=== PATIENT | female | born 1965 | race Caucasian/White ===

== ENCOUNTER 2016-05-10 15:46 | Emergency (ER) | payer OTHER ==
[2016-05-10 16:07] VITALS: RESP 18
[2016-05-10] MEDS ORDERED: DIPH,PERTUS(ACELL)TETVAC-LF 0.5 ML VIAL IM ONE (16:09)
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
[2016-05-10] MEDS ORDERED: CIPROFLOXACIN HCL 500 MG TAB PO STA (16:32)
[2016-05-10] MEDS ORDERED: metroNIDAZOLE 500 MG TAB PO STA (16:32)
[2016-05-10 17:02] VITALS: BP 130/68; PULSE 83; TEMP 98
[2016-05-13 07:43] LABS: Hepatitis B Surface Ag Index 0.07; Hepatitis C Virus IgG Ab Negative (Negative); Hepatitis C Virus IgG Index 0.02
[2016-05-14 06:55] LABS: HIV-1/HIV-2 Ab Screen NONREAC (NON REAC)
== END 2016-05-10 17:00 | disposition home or self-care (01) ==
LOC: EC 15:46
DX: S71.151A Open bite, right thigh, initial encounter (principal); Z88.0 Allergy status to penicillin; Z23 Encounter for immunization; Z79.899 Other long term (current) drug therapy; W50.3XXA Accidental bite by another person, initial encounter; Y92.219 Unspecified school as the place of occurrence of the external cause
CPT/HCPCS: 36415; 86803; 87340; 87389; 90471; 90715; 99283

== ENCOUNTER → 2020-04-25 | Outpatient (CLI) | payer BC ==
--- NOTE | 2020-04-25 12:25 | MM ---
Reason for exam: screening (asymptomatic). Last mammogram was performed 5 years and 10 months ago. Physical Findings: A clinical breast exam by your physician is recommended on an annual basis and results should be correlated with mammographic findings. MG Screening Mammo w CAD Bilateral CC and MLO view(s) were taken. Prior study comparison: June 29, 2014, mammogram, performed at [facility]. May 14, 2013, mammogram, performed at [facility]. The breast tissue is heterogeneously dense. This may lower the sensitivity of mammography. There is no discrete abnormality. ASSESSMENT: Negative, BI-RAD 1 RECOMMENDATION: Routine screening mammogram of both breasts in 1 year.
--- NOTE | 2020-04-25 13:35 | BD ---
EXAMINATION TYPE: Axial Bone Density DATE OF EXAM: 04/25/2020 COMPARISON: NONE CLINICAL HISTORY: Postmenopausal female. Height: 5 FT 4 IN Weight: 117 FRAX RISK QUESTIONS: Alcohol (3 or more units per day): NO Family History (Parent hip fracture): NO Glucocorticoids (More than 3mos): NO (Ex: prednisone, prednisolone, methylprednisolone, dexamethasone, and hydrocortisone). History of Fracture in Adulthood: NO Secondary Osteoporosis: 1. Type 1 Diabetes: NO 2. Hyperthyroidism: NO 3. Menopause before 45: NO 4. Malnutrition: NO 5. Chronic liver disease: NO Rheumatoid Arthritis: NO Current Tobacco Use: NO RISK FACTORS HISTORY OF: Family History of Osteoporosis: NO Active: YES Diet low in dairy products/other sources of calcium: NO Postmenopausal woman: AGE 48 Take estrogen and/or progesterone medications: NONE Lost more than 2 inches in height since high school: NO MEDICATIONS: Thyroid Medications: YES Which medication: LEVOTHYROXINE How Long: APPROX 5 YEARS Additional Medications: LEVOTHYROXINE Additional History: EXAM MEASUREMENTS: Bone mineral densitometry was performed using the Pressable System. Bone mineral density as measured about the Lumbar spine is: ----- L1-L4(G/cm2): 1.090 T Score Values are as follows: ----- L2: -0.7 ----- L3: -0.6 ----- L4: -0.9 ----- L1-L4: -0.8 BASELINE Bone mineral density about the R hip (g/cm2): 0.855 Bone mineral density about the L hip (g/cm2): 0.829 T Score values are as follows: -----R Neck: -1.3 -----L Neck: -1.5 -----R Total: -1.0 -----L Total: -1.0 BASELINE IMPRESSION: Osteopenia (T Score between -2.5 and -1). There is slightly increased risk of fracture and the patient may be considered for treatment. Re-Screen 2-5 years. NOTE: T-SCORE=SD OF THE YOUNG ADULT MEAN.
== END ==
LOC: RADMAMWWP 07:36
PROVIDERS: ATTEND Obstetrics & Gynecology
DX: Z12.31 Encounter for screening mammogram for malignant neoplasm of breast (principal); M85.89 Other specified disorders of bone density and structure, multiple sites; Z13.820 Encounter for screening for osteoporosis
CPT/HCPCS: 77067; 77080

== ENCOUNTER → 2022-09-11 | Outpatient (CLI) | payer BC ==
--- NOTE | 2022-09-12 16:39 | BD ---
EXAMINATION TYPE: Axial Bone Density DATE OF EXAM: 09/11/2022 CLINICAL HISTORY: 56 years old Female. ICD-10 CODE: M85.88 BONE DISORDER Height: 63.5 in Weight: 120 lbs RISK FACTORS HISTORY OF: Active: yes Postmenopausal woman: age 46 MEDICATIONS: Thyroid Medications: yes Which medication: Levothyroxine How Lon+ years EXAM MEASUREMENTS: Bone mineral densitometry was performed using the [employer] System. Bone mineral density as measured about the Lumbar spine is: ----- L1-L4(G/cm2): 1.019 T Score Values are as follows: ----- L1: -1.3 ----- L2: -1.4 ----- L3: -1.5 ----- L4: -1.3 ----- L1-L4: -1.3 Z Score Values are as follows: ----- L1: -0.1 ----- L2: -0.2 ----- L3: -0.3 ----- L4: -0.1 ----- L1-L4: -0.1 Bone mineral density has: Decreased -6.5% since study of: 04/25/2020 Bone mineral density about the R hip (g/cm2): 0.857 Bone mineral density about the L hip (g/cm2): 0.866 T Score values are as follows: -----R Neck: -1.5 -----L Neck: -1.6 -----R Total: -1.2 -----L Total: -1.1 Z Score values are as follows: -----R Neck: -0.2 -----L Neck: -0.3 -----R Total: -0.3 -----L Total: -0.2 Bone mineral density has: Decreased -2.7% since study of: 04/25/2020 FRAX%s: The graph provided illustrates a 6.4% chance for a major osteoporotic fx and a 0.6% chance fo r the hips probability for fx in 10 years time. IMPRESSION: Osteopenia (T Score between -2.5 and -1). There is slightly increased risk of fracture and the patient may be considered for treatment. Re-Screen 2-5 years. NOTE: T-SCORE=SD OF THE YOUNG ADULT MEAN.
--- NOTE | 2022-09-12 20:50 | MM ---
Reason for Exam: Screening (asymptomatic). Last mammogram was performed 2 year(s) and 4 month(s) ago. Patient History: Menarche at age 15. First Full-Term at age 26. Postmenopausal. Risk Values: Karen 5 year model risk: 1.2%. NCI Lifetime model risk: 8.3%. Prior Study Comparison: 05/14/2013 Screening Mammogram, [facility]. 06/29/2014 Screening Mammogram, [facility]. 04/25/2020 Bilateral Screening Mammogram, [facility]. Tissue Density: The breast tissue is heterogeneously dense. This may lower the sensitivity of mammography. Findings: Analyzed By CAD. Central upper outer quadrant global asymmetry on the right remains unchanged. There is no suspicious group of microcalcifications or new suspicious mass in either breast. Overall Assessment: Benign, BI-RAD 2 Management: Screening Mammogram of both breasts in 1 year. . Patient should continue monthly self-breast exams. A clinical breast exam by your physician is recommended on an annual basis. This exam should not preclude additional follow-up of suspicious palpable abnormalities. Note on Karen scores and lifetime risk: 1. A Karen score greater than 3% is considered moderate risk. If this is the case, consider specialist referral to assess eligibility for a risk reducing agent. 2. If overall lifetime risk for the development of breast cancer is 20% or higher, the patient may qualify for future screening with alternating mammogram and breast MRI. Electronically signed and approved by: Jyoti Fountain M.D. Radiologist
== END | disposition home or self-care (01) ==
LOC: RADBDWWP 15:28
PROVIDERS: ATTEND Obstetrics & Gynecology
DX: Z12.31 Encounter for screening mammogram for malignant neoplasm of breast (principal); M85.89 Other specified disorders of bone density and structure, multiple sites; Z78.0 Asymptomatic menopausal state
CPT/HCPCS: 77063; 77067; 77080

== ENCOUNTER → 2023-10-29 | Outpatient (CLI) | payer BC ==
--- NOTE | 2023-10-30 14:20 | MM ---
Reason for Exam: Screening (asymptomatic). Last mammogram was performed 1 year(s) and 2 month(s) ago. Patient History: Menarche at age 15. First Full-Term at age 26. Postmenopausal. Risk Values: Karen 5 year model risk: 1.3%. NCI Lifetime model risk: 8.0%. Prior Study Comparison: 06/29/2014 Screening Mammogram, [facility]. 04/25/2020 Bilateral Screening Mammogram, [facility]. 09/11/2022 Bilateral MG 3D screening mammo w/cad, [facility]. Tissue Density: There are scattered areas of fibroglandular density. Findings: Analyzed By CAD. There is no suspicious group of microcalcifications or new suspicious mass in either breast. Overall Assessment: Negative, BI-RAD 1 Management: Screening Mammogram of both breasts in 1 year. . Patient should continue monthly self-breast exams. A clinical breast exam by your physician is recommended on an annual basis. This exam should not preclude additional follow-up of suspicious palpable abnormalities. Note on Karen scores and lifetime risk: 1. A Karen score greater than 3% is considered moderate risk. If this is the case, consider specialist referral to assess eligibility for a risk reducing agent. 2. If overall lifetime risk for the development of breast cancer is 20% or higher, the patient may qualify for future screening with alternating mammogram and breast MRI. Electronically signed and approved by: Clint Herring M.D. Radiologis
== END | disposition home or self-care (01) ==
LOC: RADMAMWWP 15:39
PROVIDERS: ATTEND Family Medicine
DX: Z12.31 Encounter for screening mammogram for malignant neoplasm of breast
CPT/HCPCS: 77063; 77067

== ENCOUNTER 2024-06-03 07:12 | Day surgery (SDC) | payer BC ==
[2024-05-31 15:34] VITALS: BMI 19.3
[2024-06-03] MEDS: IV FLUID CONTINUATION 1,000 ML IV ONE (08:01)
[2024-06-03 08:03] VITALS: TEMP 97
[2024-06-03] MEDS: LACTATED RINGERS 1,000 ML IV SCH (08:10)
[2024-06-03] MEDS ORDERED: PROPOFOL 10 MG/ML 20 ML VIAL IV ONE (08:16)
--- NOTE | 2024-06-03 08:37 | P.PCN ---
Date of Procedure: 06/03/24 Preoperative Diagnosis: Screening Postoperative Diagnosis: Normal colon Procedure(s) Performed: Colonoscopy Anesthesia: MAC Surgeon: Ruy Johnson Pathology: none sent Condition: stable Disposition: same day Indications for Procedure: 58-year-old female screening colonoscopy. She has never had a colonoscopy previously. She denies any blood in her stool or rectal bleeding. She does have a sister with history of colon cancer. Risks, benefits and alternatives were provided to the patient. All questions answered Operative Findings: Overall, normal-appearing colon Description of Procedure: The patient was brought to the endoscopy suite and placed in left lateral decubitus position and adequate sedation was achieved using conscious sedation. Digital rectal exam was performed and mild internal hemorrhoids were palpated. An endoscope was then placed in the rectum and advanced to the cecum as identified by landmarks including the appendiceal orifice and the ileocecal valve. The prep was good. The colonoscope was then slowly withdrawn, examining for any mucosal abnormalities. The cecum, ascending, transverse, descending and sigmoid colon were visualized adequately. There were no obvious neoplastic lesions. No obvious polyps noted. No evidence of diverticulosis. Hemostasis was maintained. Retroflexion was performed in the rectum and internal hemorrhoids. Excess air was removed, the colonoscope withdrawn and the procedure terminated. The patient was then transferred to the recovery unit in stable condition. Repeat colonoscopy should be performed in 5 years due to family history of colon cancer.
[2024-06-03 08:55] VITALS: BP 113/72; PULSE 67; RESP 18
== END 2024-06-03 09:22 | disposition home or self-care (01) ==
LOC: ORWHC2ENDO 07:12
PROVIDERS: ATTEND Surgery
DX: Z12.11 Encounter for screening for malignant neoplasm of colon (principal); K64.8 Other hemorrhoids; E03.9 Hypothyroidism, unspecified; Z79.890 Hormone replacement therapy; Z80.0 Family history of malignant neoplasm of digestive organs
CPT/HCPCS: 45378; J2704